=== PATIENT | female | born 1975 | race Caucasian/White ===

== ENCOUNTER 2024-10-11 11:06 | Day surgery (SDC) | payer BC ==
[2024-10-10 09:51] VITALS: BMI 30.8
[2024-10-11 13:18] VITALS: RESP 19; TEMP 97.6
[2024-10-11 13:25] VITALS: BP 111/74; PULSE 74
== END 2024-10-11 13:26 | disposition home or self-care (01) ==
LOC: FASU-ENDO 11:06
PROVIDERS: ATTEND Internal Medicine Gastroenterology
PROC: 0DJD8ZZ Inspection of Lower Intestinal Tract, Via Natural or Artificial Opening Endoscopic (ICD-10-PCS; principal; 2024-10-11 12:47)
DX: Z12.11 Encounter for screening for malignant neoplasm of colon (principal); K57.30 Diverticulosis of large intestine without perforation or abscess without bleeding; K64.1 Second degree hemorrhoids; Z86.0109 Personal history of other colon polyps
CPT/HCPCS: 81025